=== PATIENT | female | born 1965 | race Caucasian/White ===

== ENCOUNTER → 2024-02-03 16:09 | Outpatient (REF) | payer OTHER, SELFPAY | LOC: HWWDC 16:09 | PROVIDERS: ATTENDING PHYSICIAN Obstetrics & Gynecology; FAMILY PHYSICIAN Family Medicine | DX: Z12.31 Encounter for screening mammogram for malignant neoplasm of breast (principal) | CPT/HCPCS: 77063; 77067 ==

== ENCOUNTER → 2024-09-24 11:12 | Outpatient (REF) | payer OTHER, SELFPAY | LOC: HWRAD 11:12 | PROVIDERS: ATTENDING PHYSICIAN Obstetrics & Gynecology; FAMILY PHYSICIAN Family Medicine | DX: N93.9 Abnormal uterine and vaginal bleeding, unspecified (principal) | CPT/HCPCS: 76830; 76856 ==

== ENCOUNTER → 2025-05-06 08:45 | Outpatient (REF) | payer OTHER, SELFPAY | LOC: HWWDC 08:45 | PROVIDERS: ATTENDING PHYSICIAN Obstetrics & Gynecology; FAMILY PHYSICIAN Family Medicine | DX: Z12.31 Encounter for screening mammogram for malignant neoplasm of breast (principal) | CPT/HCPCS: 77063; 77067 ==

== ENCOUNTER 2025-06-18 06:24 | Day surgery (SDC) | payer OTHER, SELFPAY ==
[2025-06-18 09:09] VITALS: BP 108/74
[2025-06-18] MEDS: NORMOSOL-R/PLASMALYTE-A 1000 IV (09:21)
[2025-06-18] MEDS: NEURONTIN 100 MG PO (09:25)
[2025-06-18] MEDS: TYLENOL 1000 MG PO (09:25)
[2025-06-18 09:27] VITALS: BMI 27.2
[2025-06-18 09:35] VITALS: BMI 27.2
[2025-06-18 12:38] VITALS: BP 108/74; BP 126/80
[2025-06-18 12:45] VITALS: BP 125/79
[2025-06-18 13:00] VITALS: BP 126/83
[2025-06-18 13:40] VITALS: BP 109/73
[2025-06-18 14:14] VITALS: BP 103/70
== END 2025-06-18 14:22 | disposition home or self-care (01) ==
LOC: SDS 06:24
PROVIDERS: ATTENDING PHYSICIAN Obstetrics & Gynecology
DX: N95.0 Postmenopausal bleeding (principal); R93.89 Abnormal findings on diagnostic imaging of other specified body structures; Z79.890 Hormone replacement therapy
CPT/HCPCS: 58558; 86850; 86900; 86901; 88305